=== PATIENT | male | born 1960 | race Hispanic/Latino ===

== ENCOUNTER 2021-12-03 06:21 | Day surgery (SDC) | payer BC ==
[2021-12-03] MEDS ORDERED: SODIUM CHLORIDE 0.9% 1000 ML 1,000 ML IV SCH (07:00)
[2021-12-03 07:16] LABS: Basophils % (Auto) 0.6 % (0.0-1.8); Eosinophils # (Auto) 0.1 K/mm3 (0.0-0.4); Eosinophils % (Auto) 1.3 % (0.0-4.3); Hemoglobin 15.3 gm/dl (11.8-15.2); Lymphocytes # (Auto) 1.7 K/mm3 (1.2-5.4); Lymphocytes % (Auto) 27.1 % (13.4-35.0); Mean Corpuscular HGB Conc 34 % (32-34); Mean Corpuscular Volume 96 fl (84-94); Monocytes # (Auto) 0.5 K/mm3 (0.0-0.8); Platelet Count 196 K/mm3 (140-440); Red Cell Distribution Width 13.7 % (13.2-15.2)
[2021-12-03] MEDS ORDERED: propofoL 200 MG/20 ML VIAL IV ONE (07:23)
[2021-12-03 07:31] LABS: INR 0.99 (0.87-1.13)
[2021-12-03 07:32] LABS: Partial Thromboplastin Time 28.1 Sec. (24.2-36.6)
--- NOTE | 2021-12-03 07:33 | Anesthesia Consultation ---
Anesthesia Consult and Med Hx - Airway Anesthetic Teeth Evaluation: Poor, Chipped ROM Head & Neck: Adequate Mental/Hyoid Distance: Adequate Mallampati Class: Class II Intubation Access Assessment: Probably Good - Pulmonary Exam CTA: Yes - Cardiac Exam Anesthetic Concerns: Irregular HR - Pre-Operative Health Status ASA Pre-Surgery Classification: ASA3 Proposed Anesthetic Plan: MAC, TIVA - Pulmonary Hx Smoking: Yes - Cardiovascular System Hx Hypertension: Yes - Additional Comments Anesthesia Medical History Comments: Labs, EKG, chart reviewed. All questions answered.
--- NOTE | 2021-12-03 07:36 | Anesthesia Day of Surgery ---
Anesthesia Day of Surgery - Day of Surgery Patient Examined: Yes Patient H&P Reviewed: Yes Patient is NPO: Yes
[2021-12-03 08:11] LABS: BUN/Creatinine Ratio 22; Blood Urea Nitrogen 20 mg/dL (9-20); Calcium 9.7 mg/dL (8.4-10.2); Hemolysis Index 3
--- NOTE | 2021-12-03 08:50 | Electrocardiograph Report ---
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
--- NOTE | 2021-12-03 08:50 | Electrocardiograph Report ---
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
--- NOTE | 2021-12-03 10:16 | Short Stay Summary ---
Short Stay Documentation Date of service: 12/03/21 - History H&P: obtained from office - Allergies and Medications Current Medications: Allergies No Known Allergies Allergy (Verified 12/03/21 06:50) Home Medications Medication Instructions Recorded Confirmed Last Taken Type Apixaban [Eliquis] 5 mg PO BID 12/03/21 12/03/21 12/02/21 History 5 mg Atorvastatin [Lipitor] 80 mg PO DAILY 12/03/21 12/03/21 12/02/21 History 80 mg Docusate Sodium [Colace CAP] 100 mg PO BID 12/03/21 12/03/21 12/02/21 History 100 mg Flecainide (Nf) [Tambocor (Nf)] 0.5 tab PO QHS 12/03/21 12/03/21 12/02/21 History 0.5mg Metoprolol [Lopressor TAB] 50 mg PO BID 12/03/21 12/03/21 12/02/21 History 50 mg Active Medications Sodium Chloride (Nacl 0.9% 1000 Ml) 1,000 mls @ 42 mls/hr IV DIRECT FIORELLA Stop: 12/03/21 20:00 - Brief post op/procedure progress note Date of procedure: 12/03/21 Pre-op diagnosis: Atrial fibrillation Post-op diagnosis: other (Normal sinus rhythm) - Hospital course Hospital course: Patient presents today for cardioversion due to history of A. fib. Patient has cardioverted to normal sinus rhythm. Patient tolerated procedure well with no complications - Disposition Condition at discharge: Good Disposition: 01 HOME / SELF CARE / HOMELESS - Discharge Diagnoses (1) A-fib Status: Acute (2) Hypertension Status: Acute (3) Hyperlipidemia Status: Acute Short Stay Discharge Plan Activity: advance as tolerated Diet: low fat, low cholesterol, low salt Follow up with: ALEX POWELL MD [Staff Physician] - 7 Days MÓNICA NUNEZ JR., MD [Primary Care Provider] - 7 Days
[2021-12-03 10:35] VITALS: BP 120/73
--- NOTE | 2021-12-03 10:35 | Post Anesthesia Evaluation ---
- Post Anesthesia Evaluation Patient Participated: Yes Airway Patent: Yes Stable Respiratory Function: Yes Nausea/Vomiting: No Temp > 96.8F: Yes Pain Manageable: Yes Adequeate Hydration: Yes Anesthesia Complications: No
== END 2021-12-03 11:00 | disposition home or self-care (01) ==
LOC: CATHLABREC 06:21
PROVIDERS: ATTEND Internal Medicine Cardiovascular Disease
DX: I48.91 Unspecified atrial fibrillation (principal); I10 Essential (primary) hypertension; E78.5 Hyperlipidemia, unspecified; G47.30 Sleep apnea, unspecified; M19.90 Unspecified osteoarthritis, unspecified site; Z98.890 Other specified postprocedural states; Z82.61 Family history of arthritis; Z79.899 Other long term (current) drug therapy; Z87.891 Personal history of nicotine dependence; Z87.442 Personal history of urinary calculi; Z80.8 Family history of malignant neoplasm of other organs or systems; Z82.49 Family history of ischemic heart disease and other diseases of the circulatory system; Z86.73 Personal history of transient ischemic attack (TIA), and cerebral infarction without residual deficits
CPT/HCPCS: 36415; 80048; 85025; 85610; 85730; 92960; 93005; J2704; J7030; J7120; Q0162